=== PATIENT | female | born 1960 | race Caucasian/White ===

== ENCOUNTER → 2024-05-20 | Outpatient (CLI) | payer OTHER, SELFPAY ==
--- NOTE | 2024-05-20 09:42 | RAD_ITS ---
PROCEDURE: KNEE 3 VIEWS 05/20/2024 REASON FOR EXAM: KNEE INJURY TECHNIQUE: 3 view(s) of the left knee COMPARISON: None FINDINGS: Bones: Slightly depressed fracture of the lateral tibial plateau. Joints: [id number]-[id number] degree of joint space narrowing of the medial knee joint with degenerative spur formation. Effusion: Small joint effusion. Soft tissues: Soft tissue swelling. Other: RAD/Knee 3 Views IMPRESSION: Mildly depressed fracture through the lateral tibial plateau with degenerative changes of the medial compartment of the knee joint. Small joint effusion. Reading Location: [place] [id number]
== END | disposition home or self-care (01) ==
LOC: MTRAD 09:39
PROVIDERS: Referring Provider Physician Assistant; Visit Provider Physician Assistant
DX: S89.90XA Unspecified injury of unspecified lower leg, initial encounter (principal)
CPT/HCPCS: 73562